=== PATIENT | female | born 1960 | race Caucasian/White ===

== ENCOUNTER 2016-12-11 13:05 | Day surgery (SDC) | payer BC ==
[~2016-12-11] VITALS: Ht 162.6 cm; Wt 84.9 kg
[2016-12-11] MEDS ORDERED: GLUCOPHAGE500 MG/TAB PO (14:10)
[2016-12-11] MEDS ORDERED: GLUCOPHAGE1000 MG PO (14:11)
[2016-12-11] MEDS ORDERED: MEVACOR 20M20 MG/TAB PO (14:11)
[2016-12-11] MEDS ORDERED: COZAAR 25MG25 MG/TAB PO (14:12)
[2016-12-11] MEDS ORDERED: LEVSIN0.125 M1 PO (14:13)
[2016-12-11] MEDS ORDERED: LIBRIUM 5MG5 MG/CAP PO (14:14)
[2016-12-11] MEDS ORDERED: GAS RELIEF EXT125 MG PO (14:15)
[2016-12-11] MEDS ORDERED: PROBIOTIC FORMU1 CAP PO (14:15)
[2016-12-11] MEDS ORDERED: COLACE 100100 MG/CAP (14:16)
[2016-12-11] MEDS ORDERED: VITAMINC1000TA (14:17)
[2016-12-11] MEDS ORDERED: VITAMIND3 5000 (14:17)
[2016-12-11] MEDS ORDERED: VITAMIN B122500 MCG SL (14:18)
[2016-12-11] MEDS ORDERED: NIACOR500 MG PO (14:19)
[2016-12-11] MEDS ORDERED: THE MEDICINE S200 M2 PO (14:19)
[2016-12-11] MEDS ORDERED: ASPIRIN 32325 MG/TAB PO (14:20)
[2016-12-11] MEDS ORDERED: TURMERIC500 MG PO (14:20)
[2016-12-11 15:45] VITALS: BP 123/69; PULSE 73; TEMP 98.4
[2016-12-11 16:00] VITALS: BP 110/72; PULSE 67; TEMP 98.4
== END 2016-12-11 16:38 | disposition home or self-care (01) ==
LOC: SDCO 13:05
DX: K57.30 Diverticulosis of large intestine without perforation or abscess without bleeding (principal); K64.0 First degree hemorrhoids; E11.9 Type 2 diabetes mellitus without complications; Z68.32 Body mass index [BMI] 32.0-32.9, adult; E78.00 Pure hypercholesterolemia, unspecified; M19.90 Unspecified osteoarthritis, unspecified site; F17.210 Nicotine dependence, cigarettes, uncomplicated
CPT/HCPCS: OP; J2250; J2405; J3010; J7030

== ENCOUNTER → 2019-12-28 | Outpatient (CLI) | payer OTHER ==
[~2019-12-28] MED LIST: ASPIRIN 32325 MG/TAB PO; COLACE 100100 MG/CAP; COZAAR 25MG25 MG/TAB PO; GAS RELIEF EXT125 MG PO; GLUCOPHAGE1000 MG PO; GLUCOPHAGE500 MG/TAB PO; LEVSIN0.125 M1 PO; LIBRIUM 5MG5 MG/CAP PO; MEVACOR 20M20 MG/TAB PO; NIACOR500 MG PO; PROBIOTIC FORMU1 CAP PO; THE MEDICINE S200 M2 PO; TURMERIC500 MG PO; VITAMIN B122500 MCG SL; VITAMINC1000TA; VITAMIND3 5000
== END ==
LOC: COL.RAD 09:15
DX: M25.551 Pain in right hip (principal)
CPT/HCPCS: J3301; Q9967

== ENCOUNTER 2022-07-30 10:26 | Day surgery (SDC) | payer OTHER ==
[~2022-07-30] VITALS: Ht 162.6 cm; Wt 84.9 kg
[2022-07-30 11:36] VITALS: BP 125/69; PULSE 82; TEMP 98.7
[2022-07-30] MEDS ORDERED: GLYXAMBI1 TAB PO (11:48)
[2022-07-30] MEDS ORDERED: PRAVACHOL 40MG40 MG PO (11:49)
[2022-07-30] MEDS ORDERED: SINGULAIR 110 MG/TAB PO (11:49)
[2022-07-30] MEDS ORDERED: MICARDIS20 MG PO (11:50)
[2022-07-30] MEDS ORDERED: OCUVITE BLUE L1 EACH PO (11:51)
[2022-07-30] MEDS ORDERED: PHARMASSURE ZIN50 MG PO (11:52)
[2022-07-30] MEDS ORDERED: BERBERINE PO (11:55)
[2022-07-30] MEDS ORDERED: KRILL OIL 5001 EACH PO (11:56)
[2022-07-30] MEDS ORDERED: LIONS MANE PO (11:57)
[2022-07-30] MEDS ORDERED: GINKGO3 (11:58)
[2022-07-30] MEDS ORDERED: VITAMIN B100 PO (11:59)
[2022-07-30] MEDS ORDERED: [UNRECOGNIZED DRUG - OTHER] PO (12:01)
[2022-07-30] MEDS ORDERED: Chromium PO (12:02)
--- NOTE | 2022-07-30 12:20 | NUR ---
VERSED GIVEN PT ORDER, SPO2 MONITORED 94% RA. CALL VARMA WITHIN REACH; SAFETY MAINTAINED.
[2022-07-30] MEDS ORDERED: NORCO 325 MG-51 TAB PO (12:21)
[2022-07-30 15:00] VITALS: BP 123/76; PULSE 84; TEMP 97.2
--- NOTE | 2022-07-30 15:00 | NUR ---
1500 PATIENT RETURNS TO ROOM 5 VIA CART. PATIENT IS DROWSY BUT ALERTS TO VERBAL STIMULI. PATIENT SPOUSE IS IN ROOM. PATIENT ON 2 LPM VIA NC. 3 LAP SITS TO ABDOMEN COVERED BY BANDAIDS. ALL CDI. PT RCVD PRN PAIN MEDS IN PACU. VITAL SIGNS OBTAINED. 1530 PATIENT IS MORE ALERT, ASKING FOR SOME MORE WATER. NO DIFFICULTIES SWALLOWING. 1545 DR. MAYBERRY IS HAVING DIFFICULTIES SENDING ELECTRONIC PRESCRIPTION FOR PRN NORCO FOR PATIENT. GABINO VERIFIED WITH PHARMACIST THE DOSAGE AND HOW MANY TABS TO BE PRESCRIBED. GABINO RN WENT AND PICKED NORCO UP FROM ER. 1600 PATIENT STATES THAT HER PAIN IS STARTING TO INCREASE AGAIN. THIS NURSE ADMINISTERED PRN DOSE OF NORCO FROM OUR [facility]. THIS NURSE THEN SCANNED HOME NORCO AND GAVE TO PATIENT SPOUSE. THIS NURSE PROVIDED EDUCATION ABOUT MEDICATION GIVEN.
[2022-07-30 15:15] VITALS: BP 124/70; PULSE 82
[2022-07-30 15:28] VITALS: TEMP 98.4
[2022-07-30 15:30] VITALS: BP 124/65; PULSE 85
[2022-07-30 15:45] VITALS: BP 116/67; PULSE 83
--- NOTE | 2022-07-30 15:45 | NUR ---
DR. MAYBERRY IS NOTED TO BE HAVING DIFFICULTY SENDING NORCO PERSCRIPTION THROUGH, HE WROTE AN ORDER FOR NURSES TO DISPENSE 6 NORCO 5-325MG, SPOKE TO PHARMACIST RADHA WHO STATED THAT THEY COME IN 4 PACK, SPOKE TO DR MAYBERRY WHO STATED TO DISPENSE 8 TABS TO PATIENT TO TAKE Q4-6 HOURS AT HOME. ORDER CHANGED IN COMPUTER AND MEDICATION WAS OBTAINED FROM ER [facility] AND TAKEN TO DISCHARGE NURSE AT THIS TIME.
--- NOTE | 2022-07-30 17:05 | NUR ---
1650 PATIENT ASSISTED TO RESTROOM. PATIENT VOIDED WITH NO DIFFICULTIES. 1700 THIS NURSE WENT OVER DC INSTRUCTIONS WITH PATIENT AND PATIENT . BOTH VERBALIZED UNDERSTANDING. 1700 DISCONTINUED IV FROM LEFT FOREARM WITH NO DIFFICULTIES. 1705 PATIENT GETTING DRESSED WITH THE ASSISTANCE OF SPOUSE. 1707 PATIENT DISCHARGED FROM UNIT VIA WHEELCHAIR.
== END 2022-07-30 17:22 | disposition home or self-care (01) ==
LOC: SDCO 10:26
DX: K40.90 Unilateral inguinal hernia, without obstruction or gangrene, not specified as recurrent (principal); E11.9 Type 2 diabetes mellitus without complications; Z79.84 Long term (current) use of oral hypoglycemic drugs; F17.210 Nicotine dependence, cigarettes, uncomplicated; G47.33 Obstructive sleep apnea (adult) (pediatric)
CPT/HCPCS: C1781; J0690; J1100; J1170; J2250; J2405; J2550; J2704; J3010; J7120